=== PATIENT | male | born 1955 | race Caucasian/White ===

== ENCOUNTER 2016-05-06 12:00 | Emergency (ER) | payer OTHER ==
[2016-05-06] MEDS ORDERED: LORazepam 2 MG/1 ML VIAL IVP ONE ×2 (13:56→18:03)
--- NOTE | 2016-05-06 13:58 | PDOC ---
Lower Extremity Problem HPI - General Chief Complaint: Lower Extremity Problem/Injury Stated Complaint: LEG INFECTION Date Seen by Provider: 05/06/16 Time Seen by Provider: 13:53 - History of Present Illness Initial Comments: This patient is a 60-year-old gentleman who is morbidly obese lives at home by himself is home bound. He apparently was out of the house about a year ago to his last doctor's appointment. Since that time he's been getting refills on his prescriptions and not having any medical attention. He has been having increased weight gain over this last year including increased massive edema in his bilateral lower extremities. 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 He denies any fever or chills. He does have substantial weeping and drainage out of both of these lower extremities. He is able to bear weight on his lower extremity is bilaterally and able to ambulate some. He had been seen to be worsening and eventually EMS staff was asked to come and see him. They recommended that he come to the emergency department for evaluation but he has refused up until today. Today he states that he is willing to come in and be seen so he presents to the emergency department by ambulance. - Patient Home Medications Home Medications: Home Medications Tiotropium Holcomb [Spiriva] 18 mcg INH DAILY #90 cap 12/26/14 Furosemide [Lasix] 40 mg PO DAILY #90 tab 09/28/15 Bupropion HCl [Bupropion Xl] 300 mg PO DAILY #90 tab 12/25/15 Metoprolol Succinate 100 mg PO DAILY #90 tab 12/25/15 Propafenone HCl 150 mg PO Q8H #270 tab 12/25/15 Allopurinol 300 mg PO DAILY #90 tab 03/25/16 Ibuprofen [Advil] 10 tab PO BID PRN 05/06/16 - Patient Allergies Allergies/Adverse Reactions: Allergies Allergy/AdvReac Type Severity Reaction Status Date / Time No Known Allergies Allergy Verified 05/06/16 12:14 Past Medical History - heen HEENT History: Deaf, Other (please comment) Additional HEENT History: WEARS GLASSES, DEAF IN RIGHT EAR Cardiovascular History: Hypertension Respiratory History: COPD Gastrointestinal History: Other (please comment) Additional Gastrointestinal History: ABDOMINAL HERNIA Genitourinary History: Denies History Endocrine History: Denies History Musculoskeletal History: Muscle Weakness Prosthesis or Implant: Yes (RIGHT KNEE TOTAL REPLACEMENT HARDWARE) Neurological History: Other (please comment) Additional Neurological History: NUMBNESS TO ANTERIOR RIGHT LOWER LEG Blood Disorders: Denies History Psychiatric History: Depression History of Sexually Transmitted Diseases: No Male Reproductive History: Denies History Cancer History: Denies History In Past Year Been Physically Harmed or Verbally Threatened: No (PER PATIENT) History of MDRO: No History of Other Communicable Diseases: No Tobacco Use: Never Smoker Alcohol Use: None Substance Use Type: None Previous Surgical History: Yes Type / Date of Surgery: RIGHT KNEE x3, RIGHT KNEE TOTAL REPLACEMENT Anesthesia Reactions: No Malignant Hyperthermia: No Family History of Malignant Hyperthermia: No Significant Family History: No pertinent family hx Past Medical History Reviewed: Reviewed - No Changes ROS - Limitations ROS Limitations: No Limitations Constitution: REPORTS: Denies Symptoms Cardiovascular: REPORTS: Denies Cardiac Symptoms Respiratory: REPORTS: Denies Resp Symptoms Neurological: REPORTS: Denies Neuro Symptoms Gastrointestinal: REPORTS: Denies GI Symptoms Endocrine: REPORTS: Denies Symptoms Genitourinary: REPORTS: Denies Symptoms Lower Ext Problem Exam - General Appearance General Appearance: POSITIVE: Alert, Cooperative, No Acute Distress - Extremities Lower Extremity: POSITIVE: Other (Severe bilateral lower extremity with severe ichthyosis up to about the knee. He has multiple areas especially on the right lateral aspect of his lower leg and on top of his foot and on the left dorsum of his foot with complete skin breakdown and some areas of oozing blood and oozing fluid. Substantial redness underneath all the areas of severe ichthyosis.) - Neuro / Psych Neuro/Psych: POSITIVE: Sensation Normal, Motor Normal - HEENT HEENT: POSITIVE: Head Inspection Nml, Eyes Inspection Nml - Respiratory / CVS Respiratory / CVS: POSITIVE: No Respiratory Distress, Breath Sounds Normal, Heart Sounds Normal - Abdomen Abdomen: Soft: (All Quadrants), Normal Bowel Sounds: (All Quadrants), Denies Tenderness: (All Quadrants) Lower Ext Problem Progress - Results Reviewed by me Xrays/CTs/US Reviewed by me: Yes Radiology Findings: Plain films of feet and ankles show no obvious evidence of osteomyelitis Lab Results Reviewed: Yes Lab Results:: White blood cell count normal CRP and sedimentation rate elevated Moderate anemia Elevated BNP Otherwise labs substantially benign. - Patient's Progress MDM / ED Course: This patient has severe lower extremity edema and will need IV diuresis he also has need for substantial wound care some possible debridement and potentially hyperbaric oxygen treatment as well. He is in need a advanced care plan for healing these legs and wounds over the long-term and may need transfer to acute care long-term hospital or rehabilitation facility that can handle the severity of his lower extremity wounds and infection. I have discussed the case with hospitalist locally who believes that he needs more advanced care than what can be offered him here and is recommended that he be transferred to local tertiary care center. The hospitalist and emergency room doctor at our local [facility] has recommended admission and transfer patient will be transferred to their care. Patient Care Time - Estimated PCT Patient Care Time (In Minutes): 50 Vital Signs - Recent Vital Signs Vital Signs: Vital Signs (Last 8 hours) Temp Pulse Resp BP Pulse Ox 05/06/16 12:00 97.0 F 69 22 150/83 96 - VS Reviewed Vital Signs Reviewed: Yes Discharge Clinical Impression: Cellulitis Qualifiers: Site of cellulitis: extremity Site of cellulitis of extremity: lower extremity Laterality: right Qualifier Code: (L03.115) Cellulitis of right lower limb Discharge Disposition: Transferred to Tertiary Care Facility Condition: Fair Follow Up With: KEITH SALINAS [Primary Care Provider] - Date Decision to Transfer to Another Facility: 05/06/16 Time Decision to Transfer to Another Facility: 18:22
[2016-05-06 14:36] LABS: BASOPHILS # (AUTO) 0.04 10*3/UL; BASOPHILS % (AUTO) 0.4 % (0-1); EOSINOPHILS % (AUTO) 3.3 % (0-8); HEMATOCRIT 36.1 % (42.0-52.0); HEMOGLOBIN 10.5 g/dL (14.0-18.0); IMM GRAN % (AUTO) 0.4 % (0-5); IMM GRAN# (AUTO) 0.04 10*3/UL; LYMPHOCYTES # (AUTO) 0.76 10*3/uL; LYMPHOCYTES % (AUTO) 8.1 % (10-50); MEAN CORPUSCULAR HEMOGLOBIN 29.9 PG (27-31); MEAN CORPUSCULAR HGB CONC 29.1 g/dL (33-37); MONOCYTES # (AUTO) 0.62 10*3/UL (0.3-0.8); MONOCYTES % (AUTO) 6.6 % (5-15); NEUTROPHILS # (AUTO) 7.59 10*3/UL; NEUTROPHILS % (AUTO) 81.2 % (50-80); RDW COEFFICIENT OF VARIATION 16.2 % (11.5-14.5); RED BLOOD COUNT 3.51 10^6/uL (4.70-6.10); WHITE BLOOD COUNT 9.36 10^3/uL (4.8-10.8)
[2016-05-06] MEDS: NORMAL SALINE 10 ML SYRINGE FLUSH IVP PRN ×2 (14:40→14:43)
[2016-05-06 14:42] LABS: PLATELET MORPHOLOGY COMMENT NORMAL MORPHOLOGY (NORM)
[2016-05-06 14:43] LABS: ASPARTATE AMINO TRANSFERASE 23 IU/L (21-57); BILIRUBIN,TOTAL 0.8 mg/dL (0.3-1.2); BLOOD UREA NITROGEN 19 mg/dL (7-22); BUN/CREATININE RATIO 27.14 (6-20); C-REACTIVE PROTEIN 2.3 mg/dL (0.0-0.9); CALCIUM 8.9 mg/dL (8.7-10.7); CHLORIDE 99 meq/L (98-112); CREATININE 0.7 mg/dL (0.70-1.50); EST GLOMERULAR FILTRATION > 60 (>60 ml/min/1.73m(2)); GLUCOSE 154 mg/dL (78-110); POTASSIUM 4.5 meq/L (3.8-5.2); SODIUM 140 meq/L (135-145); TOTAL PROTEIN 7.9 g/dL (6.1-8.0)
[2016-05-06 14:49] LABS: NT-PRO BNP 242 PG/ML (0-125)
[2016-05-06 15:29] LABS: ERYTHROCYTE SEDIMENTATION RATE 86 MM/HR (0-15)
--- NOTE | 2016-05-06 17:44 | DI ---
LEFT FOOT, 05/06/2016 1:48 PM: Clinical History: Bilateral severe lower leg edema with open wounds and skin breakdown. Previous Exam: None at this facility. 3 views are submitted. There is severe edema of the lower leg and extending to the mid foot in the pa ttern of the skin is consistent with chronic stasis dermatitis and brawny edema. No fracture or dislo cation is present. There is no radiopaque foreign body or soft tissue gas. There is osteoporosis of t he metatarsal bones and the phalanges, possibly on the basis of hyperemia. The cortical margins of th e distal heads of the metatarsal bones are difficult to identify on the AP and oblique projections be cause of the size of the patient as well as the hyperemic change. Based on these limitations, the cor tices are felt to be intact. There is no periosteal new bone formation. Readin. There are changes consistent with extensive and advanced stasis dermatitis with brawny edema and hyperemia in the forefoot region. 2. Due to the limitations of imaging, evaluation for destruction of bone cortex is quite difficult i f felt to be absent. 3. Followup films in 7-10 days are recommended to monitor this patient.
--- NOTE | 2016-05-06 17:47 | DI ---
RIGHT FOOT, 05/06/2016 2:08 PM: Clinical History: Bilateral severe lower extremity edema with open wounds and skin breakdown. Previous Exam: None at this facility. 3 views are submitted. There is extensive soft tissue swelling over the entire foot without evidence of a radiopaque foreign body or soft tissue gas. The skin pattern over the lower leg and the mid and hindfoot regions are classic for chronic stasis dermatitis with brawny edema. The bones over the fore foot are osteopenic, probably on the basis of hyperemic change. This makes evaluation of the cortical margins of the distal heads of the metatarsal bones difficult to assess. The cortices are felt to be intact. There is no periosteal new bone formation. The joint spaces are intact. Readin. Changes consistent with extensive brawny edema and chronic stasis dermatitis and hyperemic change s of the forefoot. 2. Within the limitations of this exam, no disruption of the cortices of the distal heads of the met atarsal bones is felt to be present. There is no periosteal new bone formation. 3. Followup films in 7-10 days are recommended in or to monitor this patient's feet for potential ch anges that would indicate osteomyelitis.
--- NOTE | 2016-05-06 17:55 | DI ---
RIGHT TIBIA AND FIBULA, 05/06/2016 1:48 PM: Clinical History: Severe lower extremity edema with open wounds bilaterally. Previous Exam: None at this facility. AP and lateral views are submitted. There is massive subcutaneous edema from above the knee joint and extending to the ankle joint where there is evidence of chronic stasis dermatitis and probably edema . There is irregularity of the skin margin over the distal half of the anterior aspect of the lower l eg, and this probably represents the area of breakdown of skin. No soft tissue gas or radiopaque fore ign body is present. The patient is status post right total knee replacement and the prosthetic devic e articulates normally without evidence of obvious loosening of the prosthesis. There is no fracture present. There is no evidence of periosteal new bone formation to indicate acute osteomyelitis. Readin. There is massive subcutaneous edema with probable skin breakdown in the pretibial region in the m idportion of the lower leg. There is no soft tissue gas or radiopaque foreign body. 2. Status post total knee replacement and the prosthetic device articulates normally without evidenc e of loosening of the prosthesis. 3. No evidence of acute osteomyelitis is present. However, followup films in 7-10 days are recommend ed to monitor this patient for potential development of osteomyelitis.
--- NOTE | 2016-05-06 17:59 | DI ---
LEFT TIBIA AND FIBULA, 05/06/2016 2:08 PM: Clinical History: Bilateral severe lower extremity edema with open wounds. Pain. Previous Exam: None at this facility. AP and lateral views are submitted. There is massive subcutaneous edema throughout the entire lower l eg with evidence of chronic stasis dermatitis at the level of the ankle. There is no radiopaque forei gn body or soft tissue gas. No fracture or dislocation is identified. There is no periosteal new bone formation. There is narrowing of the medial compartment indicating severe degenerative arthritis. Readin. Massive subcutaneous edema without evidence of a radiopaque foreign body or soft tissue gas. Ther e is no periosteal new bone formation to indicate acute osteomyelitis. Degenerative arthritic changes are present in the medial compartment. 2. Followup films in 7-10 days are recommended to monitor this patient for potential development of osteomyelitis.
--- NOTE | 2016-05-06 18:00 | DI ---
AP CHEST X-RAY, 05/06/2016 1:48 PM : Clinical History: Morbid obesity. Severe lower extremity edema. Previous Exam: 07/10/2012. The patient is morbidly obese, and has gained substantial weight since the previous exam. This detrac ts from the overall quality and significantly limits the diagnostic quality of the exam with respect to small detail structures. There is no acute soft tissue or bony abnormality although detail is lack ing on this portable study. Heart size is normal for this portable study in the size of the patient. Lungs are clear. Mediastinal structures are normal. There are no pulmonary nodules. Readin. Technically limited study due to the patient's marked morbid obesity. The patient has gained weig ht between the 2 examinations. 2. No acute infiltrate or effusion is present in the heart size is normal.
[2016-05-06] MEDS ORDERED: Ertapenem Inj 1 GM in Sodium Chloride 0.9% 100 ML IV ONE (18:02)
[2016-05-06 18:14] VITALS: RESP 21; TEMP 99.1
== END 2016-05-06 18:36 | disposition short-term general hospital (02) ==
LOC: ER 12:05
DX: L03.115 Cellulitis of right lower limb (principal); R63.5 Abnormal weight gain; R60.9 Edema, unspecified
CPT/HCPCS: 71010; 73590; 73630; 80053; 83880; 84443; 85025; 85652; 86140; 87040; 87070; 87075; 87077; 87186; 87205; 96374; 96375; 96376; 99284; J1335; J2060; J7050

== ENCOUNTER → 2016-05-17 | Outpatient (CLI) | payer OTHER ==
[2016-05-17 10:19] LABS: HEMOGLOBIN A1C 6.64 % (4.2-6.0); MEAN BLOOD GLUCOSE (CALC) 135.112 mg/dL
[2016-05-17 10:29] LABS: ASPARTATE AMINO TRANSFERASE 24 IU/L (21-57); BILIRUBIN,TOTAL 0.7 mg/dL (0.3-1.2); BLOOD UREA NITROGEN 15 mg/dL (7-22); BUN/CREATININE RATIO 18.75 (6-20); CALCIUM 8.7 mg/dL (8.7-10.7); CHLORIDE 96 meq/L (98-112); CREATININE 0.8 mg/dL (0.70-1.50); EST GLOMERULAR FILTRATION > 60 (>60 ml/min/1.73m(2)); GLUCOSE 160 mg/dL (78-110); POTASSIUM 4.3 meq/L (3.8-5.2); SODIUM 139 meq/L (135-145); TOTAL PROTEIN 7.1 g/dL (6.1-8.0)
== END ==
LOC: MOB LAB 09:43
PROVIDERS: ATTEND Family Medicine
DX: E78.5 Hyperlipidemia, unspecified (principal); R73.09 Other abnormal glucose; I87.2 Venous insufficiency (chronic) (peripheral); R60.0 Localized edema; I50.9 Heart failure, unspecified; E66.8 Other obesity; I47.1 Supraventricular tachycardia; L30.8 Other specified dermatitis; F32.0 Major depressive disorder, single episode, mild; F17.220 Nicotine dependence, chewing tobacco, uncomplicated
CPT/HCPCS: 36415; 80053; 80061; 83036; 99213; G0463

== ENCOUNTER → 2016-07-12 | Outpatient (CLI) | payer OTHER ==
[2016-07-12 10:36] LABS: BASOPHILS # (AUTO) 0.05 10*3/UL; BASOPHILS % (AUTO) 0.6 % (0-1); EOSINOPHILS # (AUTO) 0.36 10*3/UL; HEMATOCRIT 36.7 % (42.0-52.0); HEMOGLOBIN 10.8 g/dL (14.0-18.0); LYMPHOCYTES # (AUTO) 0.83 10*3/uL; MEAN CORPUSCULAR HEMOGLOBIN 29.3 PG (27-31); MEAN CORPUSCULAR HGB CONC 29.4 g/dL (33-37); MEAN CORPUSCULAR VOLUME 99.7 FL (80-90); MEAN PLATELET VOLUME 9.8 FL (7.4-12.2); MONOCYTES # (AUTO) 0.75 10*3/UL (0.3-0.8); MONOCYTES % (AUTO) 8.3 % (5-15); NEUTROPHILS # (AUTO) 7.06 10*3/UL; NEUTROPHILS % (AUTO) 77.7 % (50-80); RED BLOOD COUNT 3.68 10^6/uL (4.70-6.10)
[2016-07-12 10:38] LABS: PLATELET MORPHOLOGY COMMENT NORMAL MORPHOLOGY (NORM); RBC MORPHOLOGY COMMENT NORMAL MORPHOLOGY (NORM); WBC MORPHOLOGY COMMENT NORMAL MORPHOLOGY (NORM)
[2016-07-12 10:49] LABS: BLOOD UREA NITROGEN 20 mg/dL (7-22); CALCIUM 8.7 mg/dL (8.7-10.7); EST GLOMERULAR FILTRATION > 60 (>60 ml/min/1.73m(2)); SERUM ALBUMIN 3.8 g/dL (3.5-4.8)
== END ==
LOC: MOB LAB 09:23
PROVIDERS: ATTEND Family Medicine
DX: I10 Essential (primary) hypertension (principal); D53.9 Nutritional anemia, unspecified; G47.30 Sleep apnea, unspecified; I47.1 Supraventricular tachycardia; I50.9 Heart failure, unspecified; G89.29 Other chronic pain; R60.0 Localized edema; F17.220 Nicotine dependence, chewing tobacco, uncomplicated
CPT/HCPCS: 36415; 80053; 83880; 85025; 99213; G0463

== ENCOUNTER → 2016-08-09 | Outpatient (CLI) | payer OTHER ==
[2016-08-09 10:19] LABS: BASOPHILS # (AUTO) 0.05 10*3/UL; BASOPHILS % (AUTO) 0.5 % (0-1); EOSINOPHILS # (AUTO) 0.48 10*3/UL; HEMOGLOBIN 10.8 g/dL (14.0-18.0); MEAN CORPUSCULAR HEMOGLOBIN 28.1 PG (27-31); MEAN CORPUSCULAR HGB CONC 28.4 g/dL (33-37); MEAN PLATELET VOLUME 10.3 FL (7.4-12.2); MONOCYTES # (AUTO) 0.93 10*3/UL (0.3-0.8); MONOCYTES % (AUTO) 9.7 % (5-15); NEUTROPHILS % (AUTO) 72.1 % (50-80); RED BLOOD COUNT 3.84 10^6/uL (4.70-6.10)
[2016-08-09 10:30] LABS: BLOOD UREA NITROGEN 25 mg/dL (7-22); BUN/CREATININE RATIO 27.77 (6-20); CALCIUM 9.2 mg/dL (8.7-10.7); CHOL/HDL RATIO 5.17 RATIO (0-4.0); EST GLOMERULAR FILTRATION > 60 (>60 ml/min/1.73m(2)); HDL CHOLESTEROL 29 mg/dL (40-150); SERUM ALBUMIN 4.1 g/dL (3.5-4.8); SERUM CHOLESTEROL 150 mg/dL (120-200)
[2016-08-09 10:45] LABS: VITAMIN D 25-HYDROXY 13.2 NG/ML (30-100)
[2016-08-09 10:50] LABS: PLATELET MORPHOLOGY COMMENT NORMAL MORPHOLOGY (NORM); RBC MORPHOLOGY COMMENT SEE COMMENTS (NORM); WBC MORPHOLOGY COMMENT NORMAL MORPHOLOGY (NORM)
[2016-08-09 11:09] LABS: HEMOGLOBIN A1C 6.32 % (4.2-6.0)
== END ==
LOC: MOB LAB 09:02
PROVIDERS: ATTEND Family Medicine
DX: E11.9 Type 2 diabetes mellitus without complications (principal); I10 Essential (primary) hypertension; I50.9 Heart failure, unspecified; E51.9 Thiamine deficiency, unspecified; D53.9 Nutritional anemia, unspecified; E88.81 Metabolic syndrome and other insulin resistance; M10.9 Gout, unspecified; R60.9 Edema, unspecified; F32.9 Major depressive disorder, single episode, unspecified; F17.220 Nicotine dependence, chewing tobacco, uncomplicated; Z12.5 Encounter for screening for malignant neoplasm of prostate
CPT/HCPCS: 36415; 80053; 80061; 82306; 82607; 83036; 84443; 84550; 85025; G0103

== ENCOUNTER → 2016-09-06 | Outpatient (CLI) | payer OTHER | LOC: MMPC 09:00 | PROVIDERS: ATTEND Family Medicine | DX: F32.9 Major depressive disorder, single episode, unspecified (principal); R60.0 Localized edema; G47.30 Sleep apnea, unspecified; I10 Essential (primary) hypertension | CPT/HCPCS: 99213; G0463 ==

== ENCOUNTER → 2016-10-04 | Outpatient (CLI) | payer OTHER | LOC: MMPC 09:00 | PROVIDERS: ATTEND Family Medicine | DX: F32.9 Major depressive disorder, single episode, unspecified (principal); I10 Essential (primary) hypertension; R60.0 Localized edema; G89.4 Chronic pain syndrome | CPT/HCPCS: 99213; G0463 ==

== ENCOUNTER → 2016-11-01 | Outpatient (CLI) | payer OTHER | LOC: MMPC 09:00 | PROVIDERS: ATTEND Family Medicine | DX: G89.4 Chronic pain syndrome (principal); R60.0 Localized edema; F41.9 Anxiety disorder, unspecified; I50.9 Heart failure, unspecified; E88.81 Metabolic syndrome and other insulin resistance | CPT/HCPCS: 99213; G0463 ==

== ENCOUNTER → 2016-11-29 | Outpatient (CLI) | payer OTHER ==
[2016-11-29 12:21] LABS: BASOPHILS # (AUTO) 0.07 10*3/UL; BASOPHILS % (AUTO) 0.7 % (0-1); EOSINOPHILS # (AUTO) 0.47 10*3/UL; EOSINOPHILS % (AUTO) 4.6 % (0-8); HEMATOCRIT 37.6 % (42.0-52.0); HEMOGLOBIN 11.2 g/dL (14.0-18.0); LYMPHOCYTES # (AUTO) 1.02 10*3/uL; MEAN CORPUSCULAR HEMOGLOBIN 28.6 PG (27-31); MEAN CORPUSCULAR HGB CONC 29.8 g/dL (33-37); MEAN CORPUSCULAR VOLUME 96.2 FL (80-90); MEAN PLATELET VOLUME 10.2 FL (7.4-12.2); MONOCYTES # (AUTO) 0.83 10*3/UL (0.3-0.8); MONOCYTES % (AUTO) 8.2 % (5-15); NEUTROPHILS # (AUTO) 7.73 10*3/UL; NEUTROPHILS % (AUTO) 76.2 % (50-80); RED BLOOD COUNT 3.91 10^6/uL (4.70-6.10)
[2016-11-29 12:25] LABS: BLOOD UREA NITROGEN 28 mg/dL (7-22); BUN/CREATININE RATIO 25.45 (6-20); CALCIUM 9.7 mg/dL (8.7-10.7); CHOL/HDL RATIO 4.63 RATIO (0-4.0); EST GLOMERULAR FILTRATION > 60 (>60 ml/min/1.73m(2)); HDL CHOLESTEROL 30 mg/dL (40-150); SERUM ALBUMIN 3.9 g/dL (3.5-4.8); SERUM CHOLESTEROL 139 mg/dL (120-200)
[2016-11-29 12:38] LABS: PLATELET MORPHOLOGY COMMENT NORMAL MORPHOLOGY (NORM); RBC MORPHOLOGY COMMENT NORMAL MORPHOLOGY (NORM); WBC MORPHOLOGY COMMENT NORMAL MORPHOLOGY (NORM)
[2016-11-29 13:01] LABS: HEMOGLOBIN A1C 6.48 % (4.2-6.0)
== END ==
LOC: MOB LAB 09:45
PROVIDERS: ATTEND Family Medicine
DX: E11.9 Type 2 diabetes mellitus without complications (principal); D53.9 Nutritional anemia, unspecified; E55.9 Vitamin D deficiency, unspecified; I50.9 Heart failure, unspecified; E88.81 Metabolic syndrome and other insulin resistance; I10 Essential (primary) hypertension; I47.1 Supraventricular tachycardia; J96.10 Chronic respiratory failure, unspecified whether with hypoxia or hypercapnia; L30.9 Dermatitis, unspecified; M10.9 Gout, unspecified; F32.9 Major depressive disorder, single episode, unspecified; Z72.0 Tobacco use
CPT/HCPCS: 36415; 80053; 80061; 82306; 83036; 83880; 85025; 99213